=== PATIENT | male | born 1995 | race Hispanic/Latino ===

== ENCOUNTER 2019-05-15 18:08 | Emergency (ER) | payer OTHER ==
[2019-05-15] MEDS ORDERED: Ketorolac Tromethamine 30 MG/ML VIAL ONE (18:22)
[2019-05-15 18:37] LABS: #Lymphocytes 1.6 thou/uL (1.20-3.40); #Monocytes 0.5 thou/uL (0.11-0.59); #Neutrophils 4.8 thou/uL (1.40-6.50); %Basophils 0.6 % (0.0-1.0); %Eosinophils 0.7 % (0.0-10.0); %Lymphocytes 22.5 % (21.0-51.0); %Neutrophils 69.2 % (42.0-75.0); Hemoglobin 14.2 g/dL (14.0-18.0); Mean Corpuscular HGB CONC 35.3 g/dL (32.0-36.0); Mean Corpuscular Hemoglobin 31.6 pg (27.0-31.0); Mean Corpuscular Volume 89.5 fL (78.0-98.0); Mean Platelet Volume 7.1 fL (7.4-10.4); Platelet Count 236 thou/uL (130-400); RBC Distribution Width 11.1 % (11.5-14.5); Red Blood Cell (RBC) Count 4.48 mill/uL (4.70-6.10); White Blood Cell (WBC) Count 6.9 thou/uL (4.8-10.8)
[2019-05-15 18:58] LABS: ALT (SGPT) 21 U/L (8-55); AST (SGOT) 23 U/L (5-34); Albumin 4.1 g/dL (3.5-5.0); Alkaline Phosphatase 76 U/L (40-150); Anion Gap 13 mmol/L (10-20); BUN (Urea Nitrogen) 14 mg/dL (8.9-20.6); Bilirubin, Total 1.1 mg/dL (0.2-1.2); CK (CPK) 438 U/L (30-200); Calc. Creatinine Clearance 0 mL/min (70-130); Calcium 8.6 mg/dL (7.8-10.44); Carbon Dioxide 22 mmol/L (22-29); Chloride 105 mmol/L (98-107); Estimated GFR-MDRD 88; Globulin 2.4 g/dL (2.4-3.5); Glucose 98 mg/dL (70-105); Potassium 3.2 mmol/L (3.5-5.1); Protein, Total 6.5 g/dL (6.0-8.3); Sodium 137 mmol/L (136-145)
[2019-05-15] MEDS ORDERED: Potassium Chloride 20 MEQ TAB ONE (20:04)
--- NOTE | 2019-05-20 15:00 | EKG ---
Test Reason : Blood Pressure : / mmHG Vent. Rate : 100 BPM Atrial Rate : 100 BPM P-R Int : 158 ms QRS Dur : 078 ms QT Int : 360 ms P-R-T Axes : 042 042 042 degrees QTc Int : 464 ms Normal sinus rhythm Normal ECG Confirmed by ROSEMARIE AGOSTO ([id number]), editorial specialist SUSSY CRESPO ([id number]) on 05/20/2019 3:00:21 PM Referred By: Confirmed By:ROSEMARIE AGOSTO
== END 2019-05-15 20:14 | disposition home or self-care (01) ==
LOC: ERS 18:08
DX: T67.5XXA Heat exhaustion, unspecified, initial encounter (principal)
CPT/HCPCS: 36415; 80053; 82550; 85025; 93005; 96361; 96374; J1885

== ENCOUNTER 2019-11-29 11:40 | Emergency (ER) | payer OTHER ==
[2019-11-29] MEDS ORDERED: Fentanyl 100 MCG/2 ML VIAL ONE (13:09)
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
--- NOTE | 2019-11-29 13:47 | RAD ---
3 VIEWS RIGHT ANKLE: Date: 11/29/2019 COMPARISON: None. HISTORY: Right ankle pain. FINDINGS: 3 views of the right ankle show no evidence of acute fracture or dislocation. No soft tissue swelling is seen. No degenerative changes are present. IMPRESSION: Unremarkable exam. POS: [facility]
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
== END 2019-11-29 14:50 | disposition home or self-care (01) ==
LOC: ERS 11:40
DX: S80.11XA Contusion of right lower leg, initial encounter (principal); S80.811A Abrasion, right lower leg, initial encounter; W22.8XXA Striking against or struck by other objects, initial encounter
CPT/HCPCS: J3010